=== PATIENT | male | born 1945 | race Caucasian/White ===

== ENCOUNTER 2016-12-31 19:34 | Emergency (ER) | payer MEDICARE, OTHER ==
[2016-12-31 23:14] LABS: HEMOGLOBIN 14.4 gm/dl (14.0-17.5); RED BLOOD COUNT 4.68 M/UL (4.20-5.50); WHITE BLOOD COUNT 9.1 K/UL (4.5-11.0)
[2016-12-31 23:31] LABS: BUN/CREATININE RATIO 14 (0-10)
== END 2017-01-01 02:19 | disposition home or self-care (01) ==
LOC: ER1 19:34
PROVIDERS: Physician Assistant Medical
DX: N41.9 Inflammatory disease of prostate, unspecified (principal); N39.0 Urinary tract infection, site not specified; R41.0 Disorientation, unspecified; Z79.899 Other long term (current) drug therapy
CPT/HCPCS: 36415; 70450; 71010; 80053; 81001; 83690; 85025; 87086; 96360; 99284; J7050; Q9962

== ENCOUNTER 2021-03-03 03:58 | Inpatient (IN) | payer MEDICARE, OTHER ==
[~2021-03-03] VITALS: Ht 177.8 cm; Wt 97.1 kg
[2021-03-03 05:10] LABS: HEMOGLOBIN 16.1 gm/dl (14.0-17.5); WHITE BLOOD COUNT 21.1 K/UL (4.5-11.0)
[2021-03-03] MEDS ORDERED: CARDURA1 MG PO (14:41)
[2021-03-03] MEDS ORDERED: SYNTHROID25 MCG PO (14:41)
[2021-03-03] MEDS ORDERED: PROZAC40 MG PO (14:42)
[2021-03-03] MEDS ORDERED: MELATONIN3 MG PO (14:52)
[2021-03-04 03:49] LABS: HEMOGLOBIN 16.6 gm/dl (14.0-17.5); RED BLOOD COUNT 5.22 M/UL (4.20-5.50)
[2021-03-04 04:57] LABS: BUN/CREATININE RATIO 34 (0-10)
[2021-03-05 07:50] LABS: HEMOGLOBIN 16.7 gm/dl (14.0-17.5); RED BLOOD COUNT 5.24 M/UL (4.20-5.50); WHITE BLOOD COUNT 27.9 K/UL (4.5-11.0)
[2021-03-06 08:16] LABS: RED BLOOD COUNT 4.69 M/UL (4.20-5.50); WHITE BLOOD COUNT 17.4 K/UL (4.5-11.0)
[2021-03-06 08:47] LABS: BUN/CREATININE RATIO 44 (0-10)
[2021-03-07 07:55] LABS: HEMOGLOBIN 13.1 gm/dl (14.0-17.5); RED BLOOD COUNT 4.32 M/UL (4.20-5.50); WHITE BLOOD COUNT 16.4 K/UL (4.5-11.0)
[2021-03-07 08:08] LABS: BUN/CREATININE RATIO 43 (0-10)
[2021-03-08 06:51] LABS: HEMOGLOBIN 12.9 gm/dl (14.0-17.5); RED BLOOD COUNT 4.12 M/UL (4.20-5.50); WHITE BLOOD COUNT 14.9 K/UL (4.5-11.0)
[2021-03-08 07:21] LABS: BUN/CREATININE RATIO 44 (0-10)
[2021-03-09 06:20] LABS: HEMOGLOBIN 12.7 gm/dl (14.0-17.5); RED BLOOD COUNT 4.06 M/UL (4.20-5.50); WHITE BLOOD COUNT 15.2 K/UL (4.5-11.0)
[2021-03-09 06:41] LABS: BUN/CREATININE RATIO 37 (0-10)
== END 2021-03-09 14:34 | disposition home or self-care (01) | DRG 853 ==
LOC: ER1 03:58 → MED SURG 4 14:37 → CDU 14:37 → MED SURG 4 03-04 12:59
PROVIDERS: Family Medicine; Internal Medicine; Surgery; ADMIT Internal Medicine
PROC: BF131ZZ Fluoroscopy of Gallbladder and Bile Ducts using Low Osmolar Contrast (ICD-10-PCS; 2021-03-07)
PROC: 0FT44ZZ Resection of Gallbladder, Percutaneous Endoscopic Approach (ICD-10-PCS; principal; 2021-03-07 10:00)
DX: A41.9 Sepsis, unspecified organism (principal); K85.10 Biliary acute pancreatitis without necrosis or infection; E87.2 Acidosis; N17.9 Acute kidney failure, unspecified; K80.00 Calculus of gallbladder with acute cholecystitis without obstruction; Z20.822 Contact with and (suspected) exposure to COVID-19; I10 Essential (primary) hypertension; N40.0 Benign prostatic hyperplasia without lower urinary tract symptoms; E03.9 Hypothyroidism, unspecified; E86.0 Dehydration; F17.210 Nicotine dependence, cigarettes, uncomplicated; K76.0 Fatty (change of) liver, not elsewhere classified; D73.5 Infarction of spleen; E55.9 Vitamin D deficiency, unspecified; E53.9 Vitamin B deficiency, unspecified; F41.9 Anxiety disorder, unspecified; F32.9 Major depressive disorder, single episode, unspecified; E78.5 Hyperlipidemia, unspecified; Z93.1 Gastrostomy status; Z93.0 Tracheostomy status
CPT/HCPCS: 36415; 71045; 76705; 80048; 80053; 80076; 81001; 82150; 82962; 83036; 83605; 83690; 83735; 84100; 85025; 85027; 87040; 87086; 93005; 96374; 96375; 96376; 99285; J0690; J1100; J1170; J1335; J1650; J1940; J2001; J2270; J2405; J2704; J3010; J7030; J7120; Q0177; Q9967; U0002

== ENCOUNTER → 2021-03-16 | Outpatient (CLI) | payer MEDICARE, OTHER ==
[~2021-03-16] MED LIST: CARDURA1 MG PO; MELATONIN3 MG PO; PROZAC40 MG PO; SYNTHROID25 MCG PO
== END ==
LOC: CT 11:00
DX: R19.8 Other specified symptoms and signs involving the digestive system and abdomen (principal); R10.9 Unspecified abdominal pain; K59.00 Constipation, unspecified; R74.8 Abnormal levels of other serum enzymes; K85.90 Acute pancreatitis without necrosis or infection, unspecified; R10.829 Rebound abdominal tenderness, unspecified site; Z90.49 Acquired absence of other specified parts of digestive tract; K68.9 Other disorders of retroperitoneum
CPT/HCPCS: Q9965